=== PATIENT | male | born 1955 ===

== ENCOUNTER 2025-07-17 20:16 | Emergency (ER) | payer BC, MEDICARE ==
[2025-07-17] MEDS ORDERED: Sodium Chloride 0.9% 10 ML Syringe FLUSH PRN (20:41)
[2025-07-17 20:58] LABS: BASOPHILS PERCENT AUTO 0.2 % (0.0-1.0); EOSINOPHILS PERCENT AUTO 1.9 % (1.0-3.0); LYMPHOCYTES PERCENT AUTO 34.3 % (20.5-50.1); MONOCYTES PERCENT AUTO 12.6 % (2-8); NEUTROPHILS PERCENT AUTO 51.0 % (42.2-75.2); PLATELET COUNT,PLT 189 10^3/uL (150-450); RED BLOOD CELL COUNT 4.73 10^6/uL (4.6-6.2); WHITE BLOOD CELL COUNT,WBC 5.9 10^3/uL (5.0-10.0)
[2025-07-17 21:11] LABS: A/G RATIO 1.2; ALANINE AMINOTRANSFERASE,ALT 54.0 U/L (16-63); ASPARTATE AMNIOTRANSFERASE,AST 31.0 U/L (15-37); BILIRUBIN TOTAL 0.9 mg/dL (0.2-1.0); BLOOD UREA NITROGEN,BUN 19.0 mg/dL (7-18); CARBON DIOXIDE,CO2 29.0 mmol/L (21-32); CHLORIDE,CL 103.0 mmol/L (98-107); CREATININE 1.11 mg/dL (0.70-1.30); EST CRCL DRUG DOSING (CG) 60.77 mL/min; GLUCOSE RANDOM 95.0 mg/dL (70-99); POTASSIUM,K 4.0 mmol/L (3.5-5.1); PROTEIN TOTAL,TP 7.3 g/dL (6.4-8.2); SODIUM,NA 139.0 mmol/L (136-145)
[2025-07-17 21:12] LABS: ESTIMATED GFR 72.0 mL/min (>=60)
[2025-07-17 21:29] LABS: INR 1.0 (0.9-1.2)
[2025-07-17] MEDS: Heparin Sodium/0.45% NaCl 25,000 UNITS/500 ML BAG IV SCH (21:59)
[2025-07-17] MEDS: Ondansetron 4 MG/2 ML SDV ONE (22:02)
[2025-07-17] MEDS: Heparin Sodium 5,000 Units/ML Vial IVPUSH ONE (22:02)
[2025-07-17] MEDS: fentaNYL 100 MCG/2 ML SDV IVPUSH ONE (22:03)
[2025-07-18] MEDS: Nitroglycerin 0.4 MG Tab.SL SL ONE (03:09)
== END 2025-07-17 22:00 ==
LOC: DL.ED 20:16
DX: I21.3 ST elevation (STEMI) myocardial infarction of unspecified site (principal); I25.10 Atherosclerotic heart disease of native coronary artery without angina pectoris
CPT/HCPCS: 36415; 71045; 80053; 83735; 84484; 85025; 85610; 85730; 96374; 99285; A9270; J1644; J3010; J3101